=== PATIENT | female | born 1955 | race Caucasian/White ===

== ENCOUNTER 2017-07-13 10:51 | Emergency (ER) | payer MEDICARE ==
[2017-07-13] MEDS ORDERED: traMADol TAB* 50 MG PO ONE (11:53)
--- NOTE | 2017-07-13 11:55 | ED ---
Upper Extremity Pain - HPI Summary HPI Summary: Patient presents 1 day s/p FOOSH injury after she slipped and fell, with noted deformity over the dorsum of the right wrist. Denies numbness, tingling, temperature or color changes to the area. Pain is 8/10, radiates to the elbow without elbow involvment. Full ROM noted throughout the right elbow. Denies pain in all fingers. Thorough physical exam was performed, focusing on special wrist tests. Limited ROM. Pain with palpation over ulnar aspect of wrist at ulnar head. Pain with palpation over radial aspect over radial head. No pain, swelling or tenderness over anatomical snuffbox. No crepitus noted. No pain on palpation over medial or lateral elbow or forearm tenderness. Due to patient pain around injury, physical exam was limited. Pulses intact bilaterally. No temperature change, color change or pallor noted bilaterally. Sensory intact of radial, medial and ulnar nerve. Capillary refill < 2 sec. She has been taking Tylenol with codeine at home without pain relief. - History of Current Complaint Chief Complaint: EDExtremityUpper Stated Complaint: FALL/LT SIDED PAIN Time Seen by Provider: 07/13/17 11:25 Hx Obtained From: Patient Mechanism Of Injury: Unknown - FOOSH Onset/Duration: Started Hours Ago - last evening Timing: Constant Severity Initially: Moderate Severity Currently: Moderate Pain Location: Forearm, Hand Character: Sharp, Aching Aggravating Factor(s): Movement, Extension, Internal/External Rotation Alleviating Factor(s): Rest Associated Signs & Symptoms: Positive: Swelling, Other - deformity over the dorsum of the right wrist - Risk Factors Non-Orthopedic Risk Factor: Negative DVT Risk Factors: Negative Septic Arthritis Risk Factor: Negative Compartment Syndrome Risk Factors: Pain - Allergies/Home Medications Allergies/Adverse Reactions: Allergies Allergy/AdvReac Type Severity Reaction Status Date / Time Hydrocodone [From Vicodin] Allergy Intermediate Headache Verified 06/13/13 09:14 PMH/Surg Hx/FS Hx/Imm Hx Previously Healthy: Yes Cardiovascular History: Denies: Hx Hypertension - Was instructed by PCP to watch BP. GI History: Comment Only: Other GI Disorders - diverticulitis - Surgical History Surgery Procedure, Year, and Place: colectomy for diverticulitis - Immunization History Hx Pertussis Vaccination: No Immunizations Up to Date: Unable to Obtain/Confirm Infectious Disease History: Denies: Traveled Outside the [place] in Last 30 Days - Social History Occupation: Unemployed Lives: With Family Alcohol Use: None Hx Substance Use: No Substance Use Type: Reports: None Hx Tobacco Use: No Smoking Status (MU): Never Smoked Tobacco Review of Systems Constitutional: Negative Eyes: Negative Cardiovascular: Negative Respiratory: Negative Genitourinary: Negative Positive: no symptoms reported, see HPI Positive: Arthralgia - right wrist pain Positive: Other - right wrist pain with swelling and deformity noted Neurological: Negative Psychological: Normal All Other Systems Reviewed And Are Negative: Yes Physical Exam Triage Information Reviewed: Yes Vital Signs On Initial Exam: Initial Vitals Temp Pulse Resp BP Pulse Ox 97.7 F 87 20 159/71 96 07/13/17 10:54 07/13/17 10:54 07/13/17 10:54 07/13/17 10:54 07/13/17 10:54 Vital Signs Reviewed: Yes Appearance: Positive: Well-Appearing, Well-Nourished Skin: Positive: Warm, Skin Color Reflects Adequate Perfusion Head/Face: Positive: Normal Head/Face Inspection Eyes: Positive: EOMI, JOSHUA, Conjunctiva Clear Neck: Positive: Supple Respiratory/Lung Sounds: Positive: Clear to Auscultation Cardiovascular: Positive: RRR, Pulses are Symmetrical in both Upper and Lower Extremities Musculoskeletal: Positive: Pain @ - see hpi Neurological: Positive: Sensory/Motor Intact, Speech Normal Psychiatric: Positive: Normal Diagnostics - Vital Signs Vital Signs Temp Pulse Resp BP Pulse Ox 07/13/17 10:54 97.7 F 87 20 159/71 96 - Laboratory Lab Statement: Any lab studies that have been ordered have been reviewed, and results considered in the medical decision making process. Course/Dx - Course Course Of Treatment: Based on [place] Wrist Rules, patient sent to imaging. Xray shows: Fracture of the distal radius at the radial styloid process with buckle. fracture and intra-articular extension. Soft tissue swelling noted over the dorsal aspect of the wrist. Unstable fractures and those at high risk for complications are those with involvement of the articular surface of the distal radial ulnar joint or a step-off. I have called ortho and spoke with Balbina the ortho PA who stated there does not appear to be these involved and should place a sugar-tong with follow up in the office. No > 20 degree of dorsal angulation for concern. Sugar tong placed. Pulses +2 bilaterally and cap refill < 2 sec pre and post splint. Patient given orthopedic follow up in 5- 7 days. Encouraged Ibuprofen 600mg three times daily with meals for pain. Given Tramadol for relief of pain. 50mg TID x 3 days given. Return precautions given. Educated patient regarding wrist injuries, healing time and the possibility of further evaluation and imaging as orthopedist sees fit. - Diagnoses Differential Diagnosis/HQI/PQRI: Positive: Contusion, Fracture (Open), Fracture (Closed) Provider Diagnoses: Radial styloid fracture Discharge - Discharge Plan Condition: Stable Disposition: HOME Prescriptions: traMADol TAB* [Ultram*] 50 mg PO TID PRN #9 tab MDD 3 PRN Reason: Pain Patient Education Materials: Wrist Fracture in Adults (ED) Referrals: Rajiv Watson MD [Primary Care Provider] - Steve Kelly MD [Medical Doctor] - Additional Instructions: Follow up with ortho office Call tomorrow for appt If you develop worsening pain not well controlled with ibuprofen or tramadol, return to the ED You should not drive or operate machinery while taking Tramadol. Do not take any pain medications at home while on tramadol
--- NOTE | 2017-07-13 12:37 | RAD ---
Indication: Right forearm injury and fall. 2 views of the right forearm demonstrates a fracture of the distal radius at the radial styloid process. There is buckle fracture with intra-articular extension. IMPRESSION: Fracture of the distal radius at the radial styloid process with buckle fracture and intra-articular extension.
--- NOTE | 2017-07-13 12:47 | RAD ---
Indication: Outstretched hand, hand injury. 3 views of the right hand demonstrates fracture of the radial styloid process extending into the joint space. Degenerative changes of the trapezium first metacarpal joint is noted. No other fractures are noted. IMPRESSION: Fracture of the radial styloid process with extension into the joint space.
[2017-07-13 14:29] VITALS: BP 137/86
== END 2017-07-13 14:28 | disposition home or self-care (01) ==
LOC: ED 10:51
DX: S52.511A Displaced fracture of right radial styloid process, initial encounter for closed fracture (principal); W01.0XXA Fall on same level from slipping, tripping and stumbling without subsequent striking against object, initial encounter; Y92.9 Unspecified place or not applicable; Z88.5 Allergy status to narcotic agent
CPT/HCPCS: 29125; 99282; A9270-GY

== ENCOUNTER → 2017-07-26 17:39 | Emergency (ER) | payer MEDICARE ==
[2017-07-26 19:46] VITALS: BP 136/58
== END | disposition left against medical advice (07) ==
LOC: ED 17:39
DX: Z46.89 Encounter for fitting and adjustment of other specified devices (principal); Z53.21 Procedure and treatment not carried out due to patient leaving prior to being seen by health care provider

== ENCOUNTER 2017-09-07 12:18 | Emergency (ER) | payer MEDICARE ==
[2017-09-07] MEDS ORDERED: Diazepam TAB(*) 5 MG PO ONE (13:14)
[2017-09-07] MEDS ORDERED: Ketorolac INJ* 60 MG/2 ML VIAL IM ONE (13:14)
--- NOTE | 2017-09-07 14:06 | RAD ---
Indication: Left neck pain. 3 views of the cervical spine demonstrates vertebral bodies to be normal in height. Mild disc space narrowing at C5-C6 and C6-C7 is noted. Spinal canal appears to be intact. IMPRESSION: Degenerative disc disease at C5-C6 and C6-C7.
--- NOTE | 2017-09-07 14:08 | RAD ---
HISTORY: Left shoulder pain COMPARISONS: None VIEWS: 4, Frontal internal rotation, external rotation, outlet, and axillary views of the left shoulder FINDINGS: BONE DENSITY: Normal. BONES: There is no displaced fracture. JOINTS: There is osteoarthritis of the left AC joint. There is mild osteoarthritis of the glenohumeral joint. ALIGNMENT: There is no dislocation. SOFT TISSUES: There is soft tissue calcification of the greater tuberosity left humerus OTHER FINDINGS: None. IMPRESSION: 1. OSTEOARTHRITIS. 2. SOFT TISSUE CALCIFICATION CONSISTENT WITH A CALCIFIC TENDINOPATHY. 3. NO ACUTE OSSEOUS INJURY. IF SYMPTOMS PERSIST, RECOMMEND REPEAT IMAGING
--- NOTE | 2017-09-07 14:41 | ED ---
Neck Pain - HPI Summary HPI Summary: Pt here w/ Lt side neck pain/shoulder pain x 4 days. Gradual onset - worse as days goes on. Mostly Lt shoulder pain that radiates into Lt side of neck and upper arm area. Worse w/ movement of shoulder - elbow flexion also triggers pain in shoulder. "Popping" w/ movement. Denies numbness, tingling, weakness in arm, chest pain, SOB, nausea, vomiting, sweating, fatigue, jaw pain, dental pain. She admits to Rt wrist fx in July and has been using Lt arm more than usual to compensate. No h/o cervical or shoulder issues. 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 - Pain Intensity: 10 - Allergies/Home Medications Allergies/Adverse Reactions: Allergies Allergy/AdvReac Type Severity Reaction Status Date / Time Hydrocodone [From Vicodin] Allergy Intermediate Headache Verified 06/13/13 09:14 PMH/Surg Hx/FS Hx/Imm Hx Previously Healthy: Yes Endocrine/Hematology History: Denies: Hx Anticoagulant Therapy, Hx Blood Disorders Cardiovascular History: Denies: Hx Aneurysm, Hx Angina, Hx Atrial Fibrillation, Hx Cardiomegaly, Hx Congenital Heart Disease, Hx Congestive Heart Failure, Hx Coronary Artery Disease, Hx Hypercholesterolemia, Hx Hypertension - Was instructed by PCP to watch BP., Hx Myocardial Infarction, Hx Valvular Heart Disease Respiratory History: Reports: Other Respiratory Problems/Disorders - chronic cough tx's w/ tylenol w/ codeine Denies: Hx Asthma, Hx Chronic Obstructive Pulmonary Disease (COPD) GI History: Reports: Hx Diverticulosis Denies: Hx Gastroesophageal Reflux Disease Musculoskeletal History: Reports: Hx of Fracture(s) - Rt wrist 07/2017 Denies: Hx Arthritis, Hx Rheumatoid Arthritis, Hx Back Problems, Hx Bursitis , Hx Fibromyalgia, Hx Gout - Surgical History Surgery Procedure, Year, and Place: colectomy for diverticulitis Infectious Disease History: No Infectious Disease History: Denies: Traveled Outside the [place] in Last 30 Days - Social History Occupation: Unemployed Lives: With Family Alcohol Use: None Hx Substance Use: No Substance Use Type: Reports: None Hx Tobacco Use: No Smoking Status (MU): Never Smoked Tobacco Review of Systems Constitutional: Negative Positive: Fatigue - chronic, unchanged from baseline. Negative: Fever, Chills ENT: Negative Negative: Dental Pain Cardiovascular: Negative Negative: Palpitations, Chest Pain Respiratory: Negative Positive: Cough - chronic - unchanged from baseline0. Negative: Shortness Of Breath Gastrointestinal: Negative Negative: Abdominal Pain, Vomiting, Diarrhea, Nausea Positive: no symptoms reported Positive: Arthralgia, Myalgia - see HPI Skin: Negative Neurological: Negative Negative: Headache, Weakness, Paresthesia, Numbness, Syncope, Slurred Speech Psychological: Normal All Other Systems Reviewed And Are Negative: Yes Physical Exam Triage Information Reviewed: Yes Vital Signs On Initial Exam: Initial Vitals Temp Pulse Resp BP Pulse Ox 98.1 F 78 16 173/71 97 09/07/17 12:21 09/07/17 12:21 09/07/17 12:21 09/07/17 12:21 09/07/17 12:21 Vital Signs Reviewed: Yes Appearance: Positive: Well-Appearing, Pain Distress - mild to moderate, Obese Skin: Positive: Warm, Dry - no erythema, no ecchymosis over affected area Head/Face: Positive: Normal Head/Face Inspection Eyes: Positive: Normal, EOMI, Conjunctiva Clear ENT: Positive: Normal ENT inspection, Hearing grossly normal, Pharynx normal, TMs normal. Negative: Nasal congestion, Nasal drainage Dental: Positive: Other - edentulous. Negative: Abscess @ Neck: Positive: Supple, Nontender, No Lymphadenopathy Respiratory/Lung Sounds: Positive: Clear to Auscultation, Breath Sounds Present Cardiovascular: Positive: Normal, RRR, Pulses are Symmetrical in both Upper and Lower Extremities Bowel Sounds: Positive: Present Musculoskeletal: Positive: Strength/ROM Intact - phalanges, wrist, elbow FROM - Lt shoulder pain w/ abduction past 90 degrees - passive and active ROM are both painful; shoulder joint is TTP - musculature supporting Lt shoulder is TTP; Lt trapezius m TTP - cervical and thoracic spinous pp NTTP Neurological: Positive: Normal, Sensory/Motor Intact, Alert, Oriented to Person Place, Time, CN Intact II-III Psychiatric: Positive: Normal - Laurence Coma Scale Coma Scale Total: 15 Diagnostics - Vital Signs Vital Signs Temp Pulse Resp BP Pulse Ox 09/07/17 13:26 18 09/07/17 12:21 98.1 F 78 16 173/71 97 - Laboratory Diagnostic Studies Comment: Cervical XR: report reviewed - arthritis - no acute findings. Lt shoulder XR: report reviewed - tendinopathy/arthritis - correlated w/ exam Lab Statement: Any lab studies that have been ordered have been reviewed, and results considered in the medical decision making process. Neck Course/Dx - Diagnoses Provider Diagnoses: Left shoulder tendonitis, Cervical arthritis Discharge - Discharge Plan Condition: Stable Disposition: HOME Patient Education Materials: Calcific Tendinitis (ED), Osteoarthritis (ED) Referrals: Rajiv Watson MD [Primary Care Provider] - Additional Instructions: Heat, gentle stretches to prevent frozen shoulder May continue diclofenac with food for pain, inflammation Wear sling for comfort and support but make sure to remove and stretch as above You may continue topical analgesics as needed Follow-up with PCP - may benefit from physical therapy, steroid injection and/ or surgical consult
[2017-09-07] MEDS ORDERED: traMADol TAB* 50 MG PO ONE (14:58)
[2017-09-07 15:15] VITALS: BP 133/60
== END 2017-09-07 15:10 | disposition home or self-care (01) ==
LOC: ED 12:18
DX: M75.92 Shoulder lesion, unspecified, left shoulder (principal); M19.91 Primary osteoarthritis, unspecified site; M25.512 Pain in left shoulder; M54.2 Cervicalgia
CPT/HCPCS: 72040; 96372; 99282; A9270-GY; J1885

== ENCOUNTER 2018-02-15 18:36 | Observation (INO) | payer MEDICARE ==
--- NOTE | 2018-02-15 19:53 | RAD ---
Indication: Sharp LEFT breast/chest pain radiating to RIGHT chest, LEFT arm, and neck. Chronic cough. Comparison: November 04, 2014 Technique: Upright AP 1940 hours Report: Accounting for superimposed soft tissues with obese body habitus the lungs and pleural spaces are clear. Negative for pneumothorax. The heart, pulmonary vasculature, and mediastinal contours are unremarkable. IMPRESSION: No evidence for acute intrathoracic disease.
[2018-02-15] MEDS ORDERED: Ondansetron INJ* 2 MG/ML VIAL IV ONE (19:54)
[2018-02-15] MEDS ORDERED: Morphine INJ* 10 MG/ML 1 ML CARPUJECT IV ONE (19:54)
[2018-02-15 20:23] LABS: EGFR Non-African American 79.5 (>60)
[2018-02-15] MEDS ORDERED: Iodixanol* (CONTRAST) 320 MG/ML 100 ML SDV IV ONE (20:27)
--- NOTE | 2018-02-15 20:55 | RAD ---
INDICATION: Chest pain radiating into the back. Assess for aortic dissection. COMPARISON: Chest radiograph of the same date and October 22, 2008 CT. TECHNIQUE: Multidetector CT images were obtained from the lung apices to the ischial tuberosities with 97 mL Visipaque 320 IV contrast. No oral contrast administered. Multiplanar reformation including maximum intensity projection and 3-D arterial volume rendering. CHEST REPORT: Mild LEFT basilar subsegmental atelectasis. No suspicious focal pulmonary lesions. Negative for pleural effusions or pneumothorax. 2.6 x 2.4 cm LEFT thyroid lobe nodule with resulting rightward deviation of the trachea. Negative for thoracic lymphadenopathy. Mild cardiomegaly. Negative for pericardial effusion. Normal diameter thoracic aorta with minimal atherosclerotic plaque. Negative for dissection of the thoracic aorta. Unremarkable main pulmonary arteries. Negative for thoracic fractures or focal osseous lesions. Diffuse mild thoracic degenerative spondylosis. CHEST IMPRESSION: 1. Negative for aneurysm or dissection of the thoracic aorta. 2. 2.6 cm LEFT thyroid lobe nodule for which nonemergent dedicated follow-up thyroid ultrasound is suggested for further assessment. ABDOMEN PELVIS REPORT: Assessment of the abdominal viscera is limited due to arterial phase of enhancement. Diffuse decreased density of the 23 cm cephalocaudal liver consistent with fatty infiltration. No visualized focal liver lesions or biliary dilatation. No CT abdomen malleolus the gallbladder, pancreas, spleen. No significant CT abnormality of the upper GI, small bowel, or infra cecal appendix. Mild colonic diverticulosis without findings of diverticulitis. Negative for ascites, free air, or significant hernias. Normal adrenal glands. Unremarkable kidneys with symmetric cortical phase enhancement. No conspicuous focal renal lesions, stones, or hydronephrosis. Unremarkable nondilated ureters. Largely decompressed urinary bladder limiting assessment without gross abnormality. Post hysterectomy. Unremarkable adnexal regions. Negative for lymphadenopathy. Normal diameter abdominal aorta and iliac arteries with only minimal atherosclerotic plaque. Negative for dissection of the abdominal aorta. Negative for significant visceral artery stenosis. Largely decompressed IVC consistent with low volume state. Negative for retroperitoneal hematoma. Negative for lumbar sacral spine or pelvic fracture or suspicious focal osseous lesions. Mild degenerative spondylosis and facet joint osteoarthritis. ABDOMEN PELVIS IMPRESSION: 1. Negative for aneurysm or dissection of the abdominal aorta. 2. Hepatomegaly and hepatosteatosis. 3. Mild colonic diverticulosis without findings of diverticulitis. 4. Negative for obstructive uropathy.
--- NOTE | 2018-02-15 21:33 | HP ---
H&P (Free Text) History and Physical: PCP: Theresa Watson MD Date/Time: 02/15/20182119 CC: chest pain HPI: Mrs Muller is a 62YO female HX HTN who experienced the rapid onset of L inframammary sharp chest pain and inferior R chest sharp chest pain. The pain radiated up into the R neck and down the R arm. There was some SOB, but no N/V, sweats, palpitations, or light-headedness. She reports night sweats the past 2 nights, denies F/C, cough, congestion, LE swelling, or change in bowel/bladder. She denies exacerbating or alleviating factors. PMedHx HTN chronic cephalgia OA L-spine IBS diverticulitis GERD Ambulatory Orders Acetaminop/Codeine 30 MG TAB* [Tylenol/Codeine 30 MG TAB*] 1 tab PO TID PRN 08/25 Gabapentin CAP(*) [Neurontin 300 CAP(*)] 300 mg PO TID 02/15/18 Naproxen Sodium [Aleve] 220 mg PO DAILY PRN 02/15/18 Pantoprazole TAB (NF) [Protonix TAB (NF)] 40 mg PO BID 02/15/18 Triamterene/HCTZ 37.5-25 MG* [Dyazide CAP*] 1 cap PO DAILY 02/15/18 amLODIPine TAB* [Norvasc 5 mg TAB*] 10 mg PO DAILY 02/15/18 Allergies hydrocodone Allergy (Verified 02/15/18 19:02) Headache PSurgHx R tarsal tunnel release hysterectomy SocHx: no tobacco, alcohol, or recreational drug HX; lives with her ; works as a housekeeper head part-time; full code status FamHx: Mother passed at 72 w/ chronic pain. Father passed at 86 from CVA, HX CAD /RI in his 50s. ROS: as above, otherwise reviewed and all were negative vitals: Vital Signs Temp 36.8 C 02/15/18 18:36 Pulse 91 02/15/18 21:00 Resp 19 02/15/18 21:00 BP 130/58 02/15/18 21:00 Pulse Ox 93 02/15/18 21:00 Intake & Output 02/14/18 02/15/18 02/15/18 23:59 11:59 23:59 Weight 90.718 kg Constitutional: NAD, normally developed, obese white female HEENM: atraumatic; sclera/conjunctiva: anicteric/clear; hearing: clinically intact; oropharynx: clear, moist Neck: soft tissue: non-tender; thyroid: normal Pulmonary: clear to auscultation bilaterally, good aeration, no accessory muscle use CV: RR/RR, normal S1S2, no carotid bruit, no jugular venous distention, 2+ B DP/ PT, no edema Abdominal: soft, non-distended, non-tender, no rebound/guarding/rigidity, normoactive bowel sounds, no hepatosplenomegaly or masses, no costovertebral angle tenderness Musculoskeletal: general: grossly intact, no tenderness w/ palpation Integumental: normal appearance and texture of exposed skin Psychiatric orientation: AA&O to PPS affect: calm mood: cooperative eye contact: fair content: reliable responses: timely insight: good Testing: Lab Results 02/15/18 Range/Units 19:20 Sodium 135 L (139-145) mmol/L Potassium 4.4 (3.5-5.0) mmol/L Chloride 100 L (101-111) mmol/L Carbon Dioxide 23 (22-32) mmol/L Anion Gap 12 H (2-11) mmol/L BUN 16 (6-24) mg/dL Creatinine 0.74 (0.51-0.95) mg/dL Est GFR ( Amer) 102.3 (>60) Est GFR (Non-Af Amer) 79.5 (>60) BUN/Creatinine Ratio 21.6 H (8-20) Glucose 121 H (70-100) mg/dL Calcium 10.0 (8.6-10.3) mg/dL Total Bilirubin 0.40 (0.2-1.0) mg/dL AST 39 (13-39) U/L ALT 32 (7-52) U/L Alkaline Phosphatase 92 (34-104) U/L Troponin I 0.00 (<0.04) ng/mL Total Protein 8.6 (6.4-8.9) g/dL Albumin 4.8 (3.2-5.2) g/dL Globulin 3.8 (2-4) g/dL Albumin/Globulin Ratio 1.3 (1-3) ECG, personally reviewed: NSR rate 99, slight ST depression V4-5 CXR, personally reviewed: IMPRESSION: No evidence for acute intrathoracic disease. CTA chest/abd/pel, personally reviewed: CHEST IMPRESSION: 1. Negative for aneurysm or dissection of the thoracic aorta. 2. 2.6 cm LEFT thyroid lobe nodule for which nonemergent dedicated follow- up thyroid ultrasound is suggested for further assessment. ABDOMEN PELVIS IMPRESSION: 1. Negative for aneurysm or dissection of the abdominal aorta. 2. Hepatomegaly and hepatosteatosis. 3. Mild colonic diverticulosis without findings of diverticulitis. 4. Negative for obstructive uropathy. Impression: 62F presenting with atypical chest pain for r/o ACS DIAGNOSIS & PLAN Primary atypical chest pain r/o ACS : telemetry : trend troponin : aspirin : metoprolol 12.5mg PO in ED : supplemental oxygen : chemical NST in AM : consider cardiology consult pending above results : supportive care Secondary HTN : continue triamterene/HCTZ & amlodipine chronic cephalgia OA L-spine : hold naproxen : continue acetaminophen & gabapentin : PRN tramadol GERD : continue pantoprazole Admission Rational: observation for r/o ACS DVTp: SCDs Code Status: full HCP:
[2018-02-15] MEDS ORDERED: Nitroglycerin TAB 0.4 MG* 0.4 MG TAB SL ONE (21:54)
[2018-02-15] MEDS ORDERED: Ondansetron INJ* 2 MG/ML VIAL IV PRN (22:12)
[2018-02-15] MEDS ORDERED: CMCS: Melatonin (NF) 3 MG TAB PO PRN (22:12)
[2018-02-15] MEDS ORDERED: Aspirin 81 mg CHEW TAB* 81 MG TAB.CHEW PO ONE (22:12)
[2018-02-15] MEDS ORDERED: Metoprolol Tartrate TAB* 25 MG PO ONE (22:14)
[2018-02-15 22:25] LABS: ABS Basophils 0.1 10^3/ul (0-0.2); ABS Eosinophils 0.2 10^3/ul (0-0.6); ABS Lymphocytes 3.2 10^3/ul (1.0-4.8); ABS Monocytes 0.7 10^3/ul (0-0.8); ABS Neutrophils 9.7 10^3/ul (1.5-7.7); ABS Nucleated RBC 0 10^3/ul; Eosinophil % 1.2 % (0-6); Hematocrit 41 % (35-47); Hemoglobin 13.8 g/dl (12.0-16.0); Lymphocyte % 22.9 % (25-47); Mean Corpuscular HGB Conc 34 g/dl (31-36); Mean Corpuscular Hemoglobin 28 pg (27-31); Mean Corpuscular Volume 84 fL (80-97); Mean Platelet Volume 7.4 um3 (7.4-10.4); Nucleated Red Blood Cells % 0.1; Platelet Count 265 10^3/ul (150-450); Red Cell Distribution Width 15 % (10.5-15); White Blood Count 13.8 10^3/ul (3.5-10.8)
[2018-02-15] MEDS: NS 0.9% 1000 ML* 1,000 ML IV SCH (23:49)
[2018-02-15] MEDS: traMADol TAB* 50 MG PO PRN (23:55)
--- NOTE | 2018-02-16 09:09 | PN ---
Subjective Date of Service: 02/16/18 Interval History: Patient was seen and examined earlier today. Reports feeling tired, but denies chest pain or tightness. She experience chest discomfort with deep inspiration of coughing. Denies SOB, fever or chills. Had her nuclear stress test done earlier. Cardiology consult requested. She has no c/o today. Family History: Unchanged from Admission Social History: Unchanged from Admission Past Medical History: Unchanged from Admission Objective Active Medications: Acetaminophen (Tylenol Tab*) 650 mg PO Q6H PRN PRN Reason: FEVER/PAIN Amlodipine Besylate (Norvasc Tab*) 10 mg PO DAILY [facility] Docusate Sodium (Colace Cap*) 200 mg PO BID [facility] Gabapentin (Neurontin Cap(*)) 300 mg PO TID [facility] Sodium Chloride (Ns 0.9% 1000 Ml*) 1,000 mls @ 50 mls/hr IV PER RATE [facility] Last Admin: 02/15/18 23:49 Dose: 50 mls/hr Melatonin (Melatonin (Nf)) 3 mg PO BEDTIME PRN; Protocol PRN Reason: Sleep Last Admin: 02/16/18 00:15 Dose: 3 mg Omeprazole (Prilosec Cap*) 20 mg PO BID [facility] Ondansetron HCl (Zofran Inj*) 4 mg IV Q6H PRN PRN Reason: NAUSEA Tramadol HCl (Ultram*) 50 mg PO Q6H PRN PRN Reason: PAIN Last Admin: 02/15/18 23:55 Dose: 50 mg Triamterene/HCTZ (Dyazide Cap*) 1 cap PO DAILY [facility] Vital Signs - 8 hr 02/16/18 02/16/18 02/16/18 02:37 03:54 07:26 Temperature 97.7 F 97.3 F Pulse Rate 69 73 Respiratory 18 18 15 Rate Blood Pressure 128/67 117/56 (mmHg) O2 Sat by Pulse 95 95 Oximetry Oxygen Devices in Use Now: None Appearance: Awake, alert and oriented. Appears comfortable laying on her bed, in NAD. Eyes: No Scleral Icterus, PERRLA Ears/Nose/Mouth/Throat: Mucous Membranes Moist Neck: NL Appearance and Movements; NL JVP, Trachea Midline Respiratory: Symmetrical Chest Expansion and Respiratory Effort, Clear to Auscultation Cardiovascular: NL Sounds; No Murmurs; No JVD, RRR Abdominal: NL Sounds; No Tenderness; No Distention, - - Minimal epigastric tenderness on exam, no rebound. Extremities: No Edema Skin: No Rash or Ulcers Neurological: Alert and Oriented x 3, NL Muscle Strength and Tone Lines/Tubes/Other Access: Clean, Dry and Intact Peripheral IV Result Diagrams: 02/15/18 22:07 02/15/18 19:20 Diagnostic Imaging: Patient Name: RE WALLER Medical Record#: [id number] Ordering Physician: Crist[facility]#: [id number] : 1955 Age: 62 Sex: F Location: [address] [place] [address] MEDICAL/TELEMETRY Exam Date: 02/16/18 0800 ADM Status: ADM Artur Order Information: NUCLEAR CARDIAC STRESS TEST Accession Number: [id number] CPT: 82701 INDICATION: Chest pain COMPARISON: None IMPRESSION: SCINTIGRAPHIC FINDINGS SUGGESTIVE OF LATERAL WALL ISCHEMIA NEAR THE BASE THE HEART. THIS WAS BE CORRELATED WITH THE CLINICAL/LABORATORY FINDINGS. NORMAL WALL MOTION AND EJECTION FRACTION. ASSESSMENT: INTERMEDIATE-RISK Based on imaging criteria from ACC/AHA 2002 Guideline Update for the Management of Patients With Chronic Stable Angina Table 23. Noninvasive Risk Stratification. Reference. HIGH-RISK (GREATER THAN 3% ANNUAL MORTALITY RATE) - Severe resting left ventricular dysfunction (LVEF < 35%) - Severe exercise left ventricular dysfunction (exercise LVEF < 35%) - Stress-induced large perfusion defect (particularly if anterior) - Stress-induced multiple perfusion defects of moderate size - Large, fixed perfusion defect with LV dilation or increased lung uptake ( thallium-201) - Stress-induced moderate perfusion defect with LV dilation or increased lung uptake (thallium-201) INTERMEDIATE-RISK (1%-3% ANNUAL MORTALITY RATE) - Mild/moderate resting left ventricular dysfunction (LVEF = 35% to 49%) - Stress-induced moderate perfusion defect without LV dilation or increased lung intake (thallium-201) LOW-RISK (LESS THAN 1% ANNUAL MORTALITY RATE) - Normal or small myocardial perfusion defect at rest or with stress Assess/Plan/Problems-Billing Assessment: - Patient Problems (1) Atypical chest pain Current Visit: Yes Comment: - Started Metoprolol - Continue ASA - Nuclear stress test read as an intermediate risk, Cardiology consult appreciated. - Continue beta blockers - Troponin trend WNL - Suspect some element of pluresy giving her pain pattern. Could be muscloskeletal in origin. (2) CAD (coronary artery disease) Current Visit: Yes Comment: - Check fasting lipid panel in AM - Discussed possible coronary angioagraphy in the future (3) Hypertension Current Visit: Yes Comment: - Continue Metoprolol and Norvasc (4) GERD (gastroesophageal reflux disease) Current Visit: Yes Comment: Continue PPI coverage, on Prilosec (5) Obesity Current Visit: Yes Comment: Supportive care (6) Chronic back pain Current Visit: Yes Status: Acute Code(s): M54.9 - DORSALGIA, UNSPECIFIED; G89.29 - OTHER CHRONIC PAIN SNOMED Code(s): 737444576 Comment: Continue Gabapentin and Tramadol prn (7) DVT prophylaxis Current Visit: Yes Status: Acute Code(s): JEF2058 - SNOMED Code(s): 829561475 Comment: Ambulate, SCD (8) Full code status Current Visit: Yes Status: Acute Code(s): Z78.9 - OTHER SPECIFIED HEALTH STATUS SNOMED Code(s): 965779019 Comment: She is full code Status and Disposition: Inpatient. Labs in AM, including lipid panel. Likely discharge to home in AM.
[2018-02-16] MEDS: Gabapentin CAP(*) 300 MG PO SCH ×4 (09:23→20:50)
[2018-02-16] MEDS: Docusate CAP* 100 MG PO SCH ×2 (09:23→20:51)
[2018-02-16] MEDS: amLODIPine TAB* 5 MG PO SCH (09:23)
[2018-02-16] MEDS: Omeprazole CAP* 20 MG PO SCH ×2 (09:23→20:50)
[2018-02-16] MEDS: Triamterene/HCTZ 37.5-25 MG* CAP PO SCH (09:23)
[2018-02-16] MEDS: traMADol TAB* 50 MG PO PRN ×2 (11:12→19:12)
[2018-02-16] MEDS ORDERED: Regadenoson* 0.4 MG/5 ML SYRINGE ONE (12:31)
--- NOTE | 2018-02-16 14:00 | RAD ---
INDICATION: Chest pain COMPARISON: None TECHNIQUE: A single day SPECT protocol was utilized. Rest images were acquired following the intravenous injection of 10.1 millicuries of technetium 99m tetrofosmin. Pharmacologic stress images were acquired following the intravenous administration of 25.1 millicuries of technetium 99m tetrofosmin. This examination is limited by lack of CT attenuation correction. This was not performed because the patient was claustrophobic. FINDINGS: Both the tomographic images and in the portal images suggest lateral wall ischemia near the base the heart. There are no other apparent defects of the stress-induced or fixed nature. The cardiac chamber size is normal. There are no wall motion abnormalities. The ejection fraction is calculated at 77 percent during stress. IMPRESSION: SCINTIGRAPHIC FINDINGS SUGGESTIVE OF LATERAL WALL ISCHEMIA NEAR THE BASE THE HEART. THIS WAS BE CORRELATED WITH THE CLINICAL/LABORATORY FINDINGS. NORMAL WALL MOTION AND EJECTION FRACTION. ASSESSMENT: INTERMEDIATE-RISK Based on imaging criteria from ACC/AHA 2002 Guideline Update for the Management of Patients With Chronic Stable Angina Table 23. Noninvasive Risk Stratification. Reference. HIGH-RISK (GREATER THAN 3% ANNUAL MORTALITY RATE) - Severe resting left ventricular dysfunction (LVEF < 35%) - Severe exercise left ventricular dysfunction (exercise LVEF < 35%) - Stress-induced large perfusion defect (particularly if anterior) - Stress-induced multiple perfusion defects of moderate size - Large, fixed perfusion defect with LV dilation or increased lung uptake (thallium-201) - Stress-induced moderate perfusion defect with LV dilation or increased lung uptake (thallium-201) INTERMEDIATE-RISK (1%-3% ANNUAL MORTALITY RATE) - Mild/moderate resting left ventricular dysfunction (LVEF = 35% to 49%) - Stress-induced moderate perfusion defect without LV dilation or increased lung intake (thallium-201) LOW-RISK (LESS THAN 1% ANNUAL MORTALITY RATE) - Normal or small myocardial perfusion defect at rest or with stress
[2018-02-16] MEDS ORDERED: Metoprolol Tartrate TAB* 25 MG PO SCH (15:00)
[2018-02-16] MEDS: Acetaminophen TAB* 325 MG PO PRN (15:42)
[2018-02-16] MEDS ORDERED: Metoprolol Succinate XL TAB* 25 MG PO ONE (16:48)
--- NOTE | 2018-02-17 00:09 | CONS ---
CC: Dr. Rajiv Watson * CARDIOLOGY CONSULTATION: DATE OF CONSULT: 02/16/18 REASON FOR CONSULT: Asked to see the patient for a history of presentation with chest discomfort and abnormal Lexiscan stress test. HISTORY OF PRESENT ILLNESS: The patient is a 62-year-old female who states that back about several years ago, she had an ultrasound done at [facility] and was told she had no active problems right then, but they saw an abnormality that would need to be watched over time. She did not have any followup since that time with any repeat echo. She states starting over the past couple of years, she would notice the onset of sharp stabbing type of discomfort under both lower ribcages with sometimes radiation around towards the back area, sometimes up into the back of her head and into her face at times. They would sometimes go down to the arms as well. This was very unpredictable and even now it is still unpredictable. 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 The patient was in usual state of health and just yesterday had the discomfort even while sitting. She had it as described involving under both left and right areas of the chest radiating into the back and down the right arm. She had no nausea, vomiting or diaphoresis with it. She had no significant palpitations or lightheadedness. Because of the worsening of the symptoms, she presented to the emergency room. In the emergency room, she was evaluated and her EKG had showed mild ST segment abnormalities particularly in lead I and aVL, and minimally in V5 and V6. There were similar type changes in V4, V5, and V6 and subtly in lead II on an older EKG. During the emergency room evaluation, she underwent a CTA of her chest, abdomen, and pelvis concerned about possibly having aortic dissection. The aorta did not show any dissection present in the chest or in the abdomen. She had hepatosplenomegaly and apparently with hepatosteatosis. Her cardiac enzymes over the course of the first day showed negative troponin of 0.00, 0.01, and 0.01. Her lactic acid on admission was 1.6 and her BUN and creatinine were normal. Her hemoglobin and hematocrit were normal, but her white count was 13,800 with 22% lymphs, 70% neutrophils and 5% monos. She subsequently underwent a Lexiscan stress test the report of which by radiology stated that there was suggestive of lateral wall ischemia near the base of the heart with an ejection fraction of 77% during exercise and no focal wall motion abnormality to that area, as such we were asked to see her. When I spoke with her more, she tells me that the symptom of the sharpness is very variable. She states that it could be made worse if she coughs and sometimes if she twists or turn. I asked her to cough in my presence very intensely and with that she developed the onset of the discomfort. She stated that the way to make it better was to take short breaths in and not take deep breaths. While she was having this symptom after coughing, I did press on the lower sternal area and provoked symptoms as well. 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 Her cardiac risk factors include a history of hypertension. She denies any history of diabetes. She denies any history of hyperlipidemia. Her father reportedly had CAD in his 50s. Mother at 72 with chronic pain. She also does not smoke. PAST MEDICAL HISTORY: Includes the hypertension, chronic cephalgia. She has irritable bowel syndrome, diverticulitis, gastroesophageal reflux and osteoarthritic lumbar spine issues. PAST SURGICAL HISTORY: Includes right carpal tunnel release, hysterectomy. MEDICATIONS: Her current medications at home included: 1. Acetaminophen and codeine 30 mg tablets one tablet t.i.d. p.r.n. 2. Gabapentin 300 mg t.i.d. 3. Naproxen 220 mg daily p.r.n. 4. Pantoprazole 40 mg twice a day. 5. Triamterene and hydrochlorothiazide 37.5/25 one a day. 6. Amlodipine 10 mg a day. ALLERGIES: HYDROCODONE, which produces headache. SOCIAL HISTORY: No tobacco, alcohol or recreational drug usage, and she lives with her . REVIEW OF SYSTEMS: As per the H and P with no additional findings. PHYSICAL EXAM: When I see her reveals an obese female, in no acute distress. Neck is supple. I do not appreciate obvious increased JVP. Carotid has fair upstroke and volume. There were no bruits or transmitted murmur. Conjunctivae are pink. Sclerae are clear. Mouth reveals moist mucosa. Lungs reveal no accessory muscle usage. There is poor to fair excursion. There are no active rales, rhonchi or wheezes. Heart reveals no visible heaves, no palpable heaves or thrills. Normal S1. I do not appreciate a significant S4, gallop. There is no significant systolic or diastolic murmur appreciated. Abdomen is soft, nontender, obese in nature without organomegaly. Of note, pressing on the lower rib area does provoke symptomatology. Extremities are heavy in nature bilaterally, but no jenni pitting edema. Neuro: The patient is alert, oriented with normal mentation. Musculoskeletal: The patient with normal gait albeit slowly and she moves all extremities appropriately. Psychological: The patient with normal affect, but seems quiet in speaking with her. DIAGNOSTIC STUDIES/LAB DATA: Laboratory Results: White blood count 13,800, hemoglobin and hematocrit 13.8 and 41 with the platelet count of 265,000. SGOT 39, SGPT 32, lactic acid as mentioned 1.6, albumin is 4.8, total protein 8.6. Sodium 135, potassium 4.4, chloride 100, bicarb 23. EKG from admission dated 02/15/18, timed 1837, revealed sinus rhythm, heart rate 99, [place] intervals 0.18, QRS 0.09, QT 0.35, axis is -20 degrees. There is minimal ST segment depression in I, aVL, in V4 through V6. Repeat EKG done today, 02/16/18, 1329, reveals the mild ST segment depression still present in I and aVL and subtly in V3, nonspecifically in V4 through V6. Nonspecific T wave abnormalities are noted as well. IMPRESSION AND PLAN: At this point in time, the symptoms do not seem to sound cardiac in nature, but I would start her on metoprolol 25 mg a day in addition to her Norvasc and get her up and about in see how she fares. Her cardiac enzymes, despite having the significant symptomatology, have been completely flat, and her EKG has not had significant change to it. I will get a fasting lipid sample in the morning to see whether or not she has hyperlipidemia and consider a statin drug if she does. If getting her up and about on medications tomorrow morning if she is able consideration could be following her up as an outpatient. If she develops recurrent symptomatology up and about exerting herself, we might have to rethink whether a definitive assessment with cardiac catheterization would be indicated, although right now I am not leading in that direction given the small abnormality on the nuclear imaging and her well preserved LV function and her very atypical sounding symptoms. Thank you very much for asking me to see her and we will follow her along with you. [id number]/CPS #: [id number] MTDD
[2018-02-17] MEDS: NS 0.9% 1000 ML* 1,000 ML IV SCH (03:30)
[2018-02-17] MEDS: Acetaminophen TAB* 325 MG PO PRN ×2 (03:45→10:47)
[2018-02-17 05:14] LABS: ABS Basophils 0.1 10^3/ul (0-0.2); ABS Eosinophils 0.1 10^3/ul (0-0.6); ABS Monocytes 0.7 10^3/ul (0-0.8); ABS Neutrophils 6.3 10^3/ul (1.5-7.7); ABS Nucleated RBC 0 10^3/ul; Eosinophil % 1.4 % (0-6); Hematocrit 40 % (35-47); Hemoglobin 13.6 g/dl (12.0-16.0); Lymphocyte % 29.8 % (25-47); Mean Corpuscular HGB Conc 34 g/dl (31-36); Mean Corpuscular Hemoglobin 29 pg (27-31); Mean Corpuscular Volume 84 fL (80-97); Mean Platelet Volume 7.2 um3 (7.4-10.4); Nucleated Red Blood Cells % 0.1; Platelet Count 253 10^3/ul (150-450); Red Blood Count 4.72 10^6/ul (4.0-5.4); Red Cell Distribution Width 15 % (10.5-15); White Blood Count 10.2 10^3/ul (3.5-10.8)
[2018-02-17 05:29] LABS: EGFR Non-African American 86.2 (>60)
[2018-02-17] MEDS ORDERED: Metoprolol Succinate XL TAB* 25 MG PO SCH (09:00)
[2018-02-17] MEDS ORDERED: Aspirin EC TAB* 81 MG TAB.EC PO SCH (09:00)
--- NOTE | 2018-02-17 09:16 | PN ---
Subjective Date of Service: 02/17/18 Interval History: Mrs. Muller is doing better today. She hasn't been ambulating much, planning to do it this morning. She has not had any recurrent chest pain since admission. She feels hungry, was NPO for a fasting lipid panel. Denies palpitations or SOB. She has no c/o today. Family History: Unchanged from Admission Social History: Unchanged from Admission Past Medical History: Unchanged from Admission Objective Active Medications: Acetaminophen (Tylenol Tab*) 650 mg PO Q6H PRN PRN Reason: FEVER/PAIN Last Admin: 02/17/18 03:45 Dose: 650 mg Amlodipine Besylate (Norvasc Tab*) 10 mg PO DAILY [facility] Last Admin: 02/16/18 09:23 Dose: 10 mg Docusate Sodium (Colace Cap*) 200 mg PO BID [facility] Last Admin: 02/16/18 20:51 Dose: 200 mg Gabapentin (Neurontin Cap(*)) 300 mg PO TID [facility] Last Admin: 02/16/18 20:50 Dose: 300 mg Sodium Chloride (Ns 0.9% 1000 Ml*) 1,000 mls @ 50 mls/hr IV PER RATE [facility] Last Admin: 02/17/18 03:30 Dose: 50 mls/hr Melatonin (Melatonin (Nf)) 3 mg PO BEDTIME PRN; Protocol PRN Reason: Sleep Last Admin: 02/16/18 00:15 Dose: 3 mg Metoprolol Succinate (Toprol Xl Tab*) 25 mg PO DAILY [facility] Omeprazole (Prilosec Cap*) 20 mg PO BID [facility] Last Admin: 02/16/18 20:50 Dose: 20 mg Ondansetron HCl (Zofran Inj*) 4 mg IV Q6H PRN PRN Reason: NAUSEA Last Admin: 02/16/18 12:17 Dose: 4 mg Tramadol HCl (Ultram*) 50 mg PO Q6H PRN PRN Reason: PAIN Last Admin: 02/16/18 19:12 Dose: 50 mg Triamterene/HCTZ (Dyazide Cap*) 1 cap PO DAILY [facility] Last Admin: 02/16/18 09:23 Dose: 1 cap Vital Signs - 8 hr 02/17/18 02/17/18 02/17/18 03:30 07:13 08:10 Temperature 98.1 F 98.2 F Pulse Rate 89 83 Respiratory 18 Rate Blood Pressure 131/69 123/62 (mmHg) O2 Sat by Pulse 93 92 92 Oximetry Oxygen Devices in Use Now: None Appearance: Appears comfortable and in NAD. Eyes: No Scleral Icterus, PERRLA Ears/Nose/Mouth/Throat: Mucous Membranes Moist Neck: NL Appearance and Movements; NL JVP, Trachea Midline Respiratory: Symmetrical Chest Expansion and Respiratory Effort, Clear to Auscultation Cardiovascular: NL Sounds; No Murmurs; No JVD, RRR Abdominal: NL Sounds; No Tenderness; No Distention Skin: No Rash or Ulcers Neurological: Alert and Oriented x 3, NL Gait, NL Muscle Strength and Tone Lines/Tubes/Other Access: Clean, Dry and Intact Peripheral IV Nutrition: Taking PO's Result Diagrams: 02/17/18 04:52 02/17/18 04:52 Assess/Plan/Problems-Billing Assessment: A 62 y/o female with atypical chest pain, negative Troponin and EKG, with mutiple risk factors for CAD, including HTN, hyperlipidemia and morbid obesity. - Patient Problems (1) Atypical chest pain Current Visit: Yes Comment: - Started Metoprolol - Continue ASA - Nuclear stress test read as an intermediate risk, Cardiology consult appreciated, no concern for acute coronary syndrome. - Continue beta blockers - Troponin trend WNL - Suspect some element of pluresy giving her pain pattern. Could be muscloskeletal in origin. (2) CAD (coronary artery disease) Current Visit: Yes Comment: - Lipid panel checked, borderline high - Start statin as outpatient (3) Hypertension Current Visit: Yes Comment: - Continue Metoprolol and Norvasc (4) GERD (gastroesophageal reflux disease) Current Visit: Yes Comment: Continue PPI coverage, on Prilosec (5) Obesity Current Visit: Yes Comment: Supportive care (6) Chronic back pain Current Visit: Yes Status: Acute Code(s): M54.9 - DORSALGIA, UNSPECIFIED; G89.29 - OTHER CHRONIC PAIN SNOMED Code(s): 766393825 Comment: Continue Gabapentin and Tramadol prn (7) DVT prophylaxis Current Visit: Yes Status: Acute Code(s): XYM7020 - SNOMED Code(s): 227725320 Comment: Ambulate, SCD (8) Full code status Current Visit: Yes Status: Acute Code(s): Z78.9 - OTHER SPECIFIED HEALTH STATUS SNOMED Code(s): 426782948 Comment: She is full code (9) Borderline hyperlipidemia Current Visit: Yes Comment: Intiate Statin theraypy and F/U with [facility] as outpatient Status and Disposition: Inpatient. Stable for discharge to home today.
[2018-02-17] MEDS: traMADol TAB* 50 MG PO PRN (09:18)
[2018-02-17] MEDS: amLODIPine TAB* 5 MG PO SCH (09:49)
[2018-02-17] MEDS: Docusate CAP* 100 MG PO SCH (09:49)
[2018-02-17] MEDS: Gabapentin CAP(*) 300 MG PO SCH ×2 (09:50→13:48)
[2018-02-17] MEDS: Triamterene/HCTZ 37.5-25 MG* CAP PO SCH (09:50)
[2018-02-17] MEDS: Omeprazole CAP* 20 MG PO SCH (09:52)
[2018-02-17] MEDS ORDERED: Atorvastatin* 40 MG TAB PO SCH (10:00)
--- NOTE | 2018-02-17 10:56 | ED ---
Jimbo Lombardi Nilda, scribed for Mono Nielsen MD on 02/15/18 at 1906 . HPI Chest Pain - HPI Summary HPI Summary: This patient is a 62 year old F presenting to [facility] with a chief complaint of intermittent CP over left breast and underneath right rib that radiates to back and jaw since 1630. The patient rates the pain 10/10 in severity. Symptoms aggravated and alleviated by nothing. Patient reports chronic cough and SOB, but denies dizziness and lightheadedness. Pt states she has not taken aspirin today. PMHx HTN. No PSHx stents. - History of Current Complaint Chief Complaint: EDChestPainROMI Time Seen by Provider: 02/15/18 18:53 Hx Obtained From: Patient Onset/Duration: Started Hours Ago, Still Present Timing: Intermittent Current Severity: Severe Pain Intensity: 10 Pain Scale Used: 0-10 Numeric Chest Pain Location: Discrete at: - CP over left breast and underneath right rib Chest Pain Radiates: Yes Chest Pain Radiates To:: Back, Jaw Aggravating Factor(s): Nothing Alleviating Factor(s): Nothing Associated Signs and Symptoms: Positive: Other: - reports chronic cough and SOB , but denies dizziness and lightheadedness - Allergy/Home Medications Allergies/Adverse Reactions: Allergies Allergy/AdvReac Type Severity Reaction Status Date / Time hydrocodone Allergy Headache Verified 02/15/18 19:02 Home Medications: Home Medications Acetaminop/Codeine 30 MG TAB* [Tylenol/Codeine 30 MG TAB*] 1 tab PO TID PRN 08/25 [History Confirmed 02/15/18] Gabapentin CAP(*) [Neurontin 300 CAP(*)] 300 mg PO TID 02/15/18 [History Confirmed 02/15/18] Naproxen Sodium [Aleve] 220 mg PO DAILY PRN 02/15/18 [History Confirmed 02/15/18 ] Pantoprazole TAB (NF) [Protonix TAB (NF)] 40 mg PO BID 02/15/18 [History Confirmed 02/15/18] Triamterene/HCTZ 37.5-25 MG* [Dyazide CAP*] 1 cap PO DAILY 02/15/18 [History Confirmed 02/15/18] amLODIPine TAB* [Norvasc 5 mg TAB*] 10 mg PO DAILY 02/15/18 [History Confirmed 02/15/18] PMH/Surg Hx/FS Hx/Imm Hx Endocrine/Hematology History: Denies: Hx Anticoagulant Therapy, Hx Blood Disorders, Hx Diabetes Cardiovascular History: Reports: Hx Hypertension - Was instructed by PCP to watch BP. Denies: Hx Aneurysm, Hx Angina, Hx Atrial Fibrillation, Hx Cardiomegaly, Hx Congenital Heart Disease, Hx Congestive Heart Failure, Hx Coronary Artery Disease, Hx Hypercholesterolemia, Hx Myocardial Infarction, Hx Valvular Heart Disease Respiratory History: Reports: Other Respiratory Problems/Disorders - chronic cough tx's w/ tylenol w/ codeine Denies: Hx Asthma, Hx Chronic Obstructive Pulmonary Disease (COPD) GI History: Reports: Hx Diverticulosis Denies: Hx Gastroesophageal Reflux Disease Musculoskeletal History: Denies: Hx Arthritis, Hx Rheumatoid Arthritis, Hx Back Problems, Hx Bursitis , Hx Fibromyalgia, Hx Gout - Surgical History Surgery Procedure, Year, and Place: colectomy for diverticulitis Infectious Disease History: No Infectious Disease History: Denies: Traveled Outside the US in Last 30 Days - Family History Known Family History: Positive: Cardiac Disease - [place] father 57 y/o, Other - no known aneurism - Social History Alcohol Use: None Hx Substance Use: No Substance Use Type: Reports: None Hx Tobacco Use: No Smoking Status (MU): Never Smoked Tobacco Review of Systems Negative: Fever, Chills Negative: Erythema Negative: Sore Throat Positive: Chest Pain - over left breast and right chest underneath rib and radiates to back and jaw Positive: Shortness Of Breath, Cough - chronic Negative: Abdominal Pain, Vomiting, Nausea Negative: dysuria, hematuria Negative: Myalgia, Edema Negative: Rash Neurological: Other - negative dizziness, lightheadedness All Other Systems Reviewed And Are Negative: Yes Physical Exam - Summary Physical Exam Summary: Constitutional: Well-developed, Well-nourished, Alert. (-) Distressed Skin: Warm, Dry HENT: Normocephalic; Atraumatic Eyes: Conjunctiva normal Neck: Musculoskeletal ROM normal neck. (-) JVD, (-) Stridor, (-) Tracheal deviation Cardio: Rhythm regular, rate normal, Heart sounds normal; Intact distal pulses; The pedal pulses are 2+ and symmetric. Radial pulses are 2+ and symmetric. (-) Murmur Pulmonary/Chest wall: Effort normal. (-) Respiratory distress, (-) Wheezes, (-) Rales Abd: Soft, (-) Tenderness, (-) Distension, (-) Guarding, (-) Rebound Musculoskeletal: (-) Edema Lymph: (-) Cervical adenopathy Neuro: Alert, Oriented x3 Psych: Mood and affect Normal Triage Information Reviewed: Yes Vital Signs On Initial Exam: Initial Vitals Temp Pulse Resp BP Pulse Ox 98.3 F 99 18 167/83 98 02/15/18 18:36 02/15/18 18:36 02/15/18 18:36 02/15/18 18:36 02/15/18 18:36 Vital Signs Reviewed: Yes Procedures - Procedure Summary Procedure Summary: US guided peripheral IV placement: compressible non-pulsatile vessel visualized in the right antecubital space. It was catheterized with good blood return and good flush. Secured in place. Diagnostics - Vital Signs Vital Signs Temp Pulse Resp BP Pulse Ox 02/15/18 18:36 98.3 F 99 18 167/83 98 - Laboratory Result Diagrams: 02/15/18 19:20 Lab Statement: Any lab studies that have been ordered have been reviewed, and results considered in the medical decision making process. - Radiology CXR Radiology Interpretation Completed By: Radiologist - No evidence for acute intrathoracic disease. Dr. Nielsen has reviewed this report. - CT CTA Chest CT Interpretation Completed By: Radiologist - CTA Chest, per radiologist, reveals 1. Negative for aneurysm or dissection of the abdominal aorta. 2. Hepatomegaly and hepatosteatosis. 3. Mild colonic diverticulosis without findings of diverticulitis. 4. Negative for obstructive uropathy. Dr. Nielsen has reviewed this radiology report. - EKG 1837 Cardiac Rate: NL - 99 bpm EKG Rhythm: Sinus Rhythm EKG Interpretation: no STEMI Chest Pain Course/Dx - Course Assessment/Plan: This patient is a 62 year old F presenting to [facility] with a chief complaint of intermittent CP over left breast and underneath right rib that radiates to back and jaw since 1630. The patient rates the pain 10/10 in severity. Symptoms aggravated and alleviated by nothing. Patient reports chronic cough and SOB, but denies dizziness and lightheadedness. Pt states she has not taken aspirin today. PMHx HTN. No PSHx stents. An EKG reveals NSR, 99 bpm, no STEMI. CXR, per radiologist, no evidence for acute intrathoracic disease. Dr. Nielsen has reviewed this report. CTA Chest, per radiologist, reveals 1. Negative for aneurysm or dissection of the abdominal aorta. 2. Hepatomegaly and hepatosteatosis. 3. Mild colonic diverticulosis without findings of diverticulitis. 4. Negative for obstructive uropathy. Dr. Nielsen has reviewed this radiology report. In the ED course, pt was given morphine and Zofran. [2058] Dr. Cunha (hospitalist) agrees to admit pt. Performed US guided peripheral IV placement: compressible non-pulsatile vessel visualized in the right antecubital space. It was catheterized with good blood return and good flush. Secured in place. Pt is stable and will be admitted with Dx CP unspecified. Pt understands and agrees with this plan. - Diagnoses Provider Diagnoses: Chest pain, unspecified - Provider Notifications Discussed Care Of Patient With: Cristóbal Cunha - Hospitalist Time Discussed With Above Provider: 20:58 Instructed by Provider To: Admit As Inpatient Discharge - Sign-Out/Discharge Documenting (check all that apply): Discharge - admit - Discharge Plan Condition: Stable Disposition: ADMITTED TO [facility] Referrals: Rajiv Watson MD [Primary Care Provider] - The documentation as recorded by the Jimbo villa Nilda accurately reflects the service I personally performed and the decisions made by Morales landers Jerry, MD.
--- NOTE | 2018-02-17 12:55 | DS ---
CC: Dr. Rajiv Watson; Dr. Ron Kramer * DATE OF ADMISSION: 02/15/2018. DATE OF DISCHARGE: 02/17/2018. ATTENDING PHYSICIAN: Dr. Federico Hay * (dictated by OSWALDO Oreilly). ADMITTING PHYSICIAN: Dr. Cunha. ADMISSION DIAGNOSES: 1. Atypical chest pain. 2. Hypertension. 3. Chronic back pain. 4. Gastroesophageal reflux disease. DISCHARGE DIAGNOSES: 1. Atypical chest pain. 2. Hypertension. 3. Chronic back pain. 4. Gastroesophageal reflux disease. 5. Hyperlipidemia. CONSULTATIONS: Dr. Ron Kramer. PROCEDURES: None. BRIEF MEDICAL HISTORY: Ms. Muller is a 62-year-old female with a past medical history significant for hypertension who presented to the emergency room after she experienced a rapid onset of sharp left-sided chest pain. She notes that the pain seemed to be burning in nature, radiates to the right neck, and down her right arm. She notes some associated shortness of breath, but there was no nausea, vomiting, palpitation, syncope, or any other associated symptoms. She denied any cough, congestion, or exacerbating factors. She had a cardiac work- up in the ED that revealed a normal troponin and an EKG that revealed the possibility of ischemic changes on the lateral wall for which she was admitted for observation and to obtain a serial troponin. HOSPITAL COURSE: The patient was admitted under Hospitalist service on 2017. She was managed in the Telemetry Unit and found to have stable vitals. She was evaluated the next morning and she denied any recurrent chest pain. Her troponin was obtained per protocol and continued to flat out normal. She had a nuclear stress test done that revealed the possibility of ischemic changes with intermediate rest. Consultation with Cardiology was obtained by Dr. Kramer who evaluated the patient and added Metoprolol and Lipitor to her medication regimen. The patient continued to improve and was ambulatory out of bed. The reed dipper did not think there was any risk for coronary artery syndrome and the patient eventually was cleared for discharge on the 2nd day from admission. Today's morning, on her exam, she continued to experience no chest pain. Her auscultation revealed a regular rate and rhythm with no rubs, murmurs or gallops noted. Her lung exam revealed clear auscultation with no rhonchi or rales. She was ambulatory out of bed and tolerated her diet very well. She will be discharged to home this morning and will follow-up with Dr. Kramer in two weeks as an outpatient and also will follow-up with her primary care physician in a couple of weeks. DISCHARGE MEDICATIONS: 1. Norvasc 10 mg p.o. daily. 2. Lipitor 40 mg p.o. daily. 3. Gabapentin 300 mg p.o. t.i.d. 4. Metoprolol Succinate 25 mg p.o. daily. 5. Aleve 220 mg p.o. daily. 6. Protonix 40 mg p.o. b.i.d. 7. Triamterene/Hydrochlorothiazide 37.5/25 one cap p.o. daily. 8. Acetaminophen with Codeine 30 mg tablets p.o. t.i.d. prn for aches and pains. PROBLEM LIST: 1. Angina pectoris with atypical chest pain and no evidence of acute coronary syndrome. 2. Hypertension. 3. Hyperlipidemia. 4. GERD. 5. Chronic back pain. OSWALDO OREILLY [id number]/[facility] #: [id number]
[2018-02-17 16:04] VITALS: BP 137/68
== END 2018-02-17 14:15 | disposition home or self-care (01) ==
LOC: ED 18:36 → MEDTELE 21:24 → INTOOBSV 02-16 16:58 → OBSVTOIN 02-16 16:58
PROVIDERS: ADMIT Hospitalist; ATTEND Internal Medicine
DX: R07.89 Other chest pain (principal); I10 Essential (primary) hypertension; M54.9 Dorsalgia, unspecified; I25.10 Atherosclerotic heart disease of native coronary artery without angina pectoris; G89.29 Other chronic pain; K21.9 Gastro-esophageal reflux disease without esophagitis; E78.5 Hyperlipidemia, unspecified; M47.9 Spondylosis, unspecified; K58.9 Irritable bowel syndrome, unspecified; Z79.82 Long term (current) use of aspirin; E66.9 Obesity, unspecified
CPT/HCPCS: 36415; 71045; 71275; 74174; 78452; 80048; 80053; 80061; 83605; 84484; 85025; 93005; 93017; 94760; 96374; 96375; 99285; A9270-GY; A9502; G0378; J2270; J2405; J2785; Q9967

== ENCOUNTER 2018-05-31 08:39 | Emergency (ER) | payer MEDICARE ==
--- OUTSIDE RECORDS SUMMARY | 2018-05-31 09:15 | XMS REPORT ---
:1955 External Reference #:[id number] Author Organization [employer] Address [address] [address] [place] [address] Phone [phone] Care Team Providers Name Role Phone Rajiv Watson MD Primary Care Physician Unavailable Payers Type Date Identification Numbers Payment Provider Subscriber Commercial Effective: 2017 Policy Number: [id number] [employer] Medicare Charline Muller Group Number: [id number] [address] PayID: [id number] [place] [address] Workers Compensation Effective: Policy Number: National Russ Muller 2006 [id number] Expires: 2017 Group Number: [id number] [address] Onset: 2006 PayID: [id number] [place] [address] Medigap Part B Expires: 2017 Policy Number: [id number] Medicaid Charline Muller PayID: [id number] [address] [place] [address] Problems Date Description Provider Status Onset: 07/15/2017 Closed fracture of distal end of Petey Lujan MD Active radius Onset: 09/28/2017 Rupture of extensor tendons of Petey Lujan MD Active hand AND/OR wrist Onset: 05/05/2018 Angina pectoris Ron Kramer M.D., [facility], Active [facility] Onset: 02/23/2018 Hyperlipidemia Ron Kramer M.D., [facility], Active [facility] Onset: 02/23/2018 Essential hypertension Ron Kramer M.D., [facility], Active [facility] Onset: 02/23/2018 Chest pain Ron Kramer M.D., [facility], Active [facility] Family History Date Family Member(s) Problem(s) Comments General Diabetes General Heart Disease General Hypertension General Stroke General Rheumatoid Arthritis Social History Type Date Description Comments Lives With Occupation Unemployed ETOH Use Denies alcohol use Smoking Patient has never smoked Recreational Drug Use Denies Drug Use Daily Caffeine Consumes on average 1 cup of regular coffee per day Exercise Type/Frequency Does not exercise Allergies, Adverse Reactions, Alerts Date Description Reaction Status Severity Comments 07/15/2017 Vicodin active Medications Medication Date Status Form Strength Qnty SIG Indications Ordering Provider Norvasc Active Tablets 10mg 90tabs 1 by Ron Jacob mouth Stefek, every M.D., day [facility], [facility] Atorvastatin Active Tablets 40mg 30tabs 1 by Ron Page 018 mouth Stefek, every M.D., day [facility], [facility] Aleve Active Capsules 220mg 1-2 by Unknown 000 mouth a day as needed Gabapentin Active Capsules 300mg 1 by Unknown 000 mouth three times a day Protonix Active Tablets DR 40mg 1 by Unknown 000 mouth every day Acetaminophen-C Active Tablets 300-30mg 1 tab by Unknown odeine #3 000 mouth every 4-6 hours as needed for pain Triamterene/Hyd Active Capsules 37.5-25mg 1 by Unknown rochlorothiazid 000 mouth e every day Tizanidine HCL Active 4mg as Unknown 000 needed Nadolol Active 20mg take one Unknown 000 tab by mouth daily Metoprolol Hx Tablets ER 25mg 90tabs 1 by Ron Succinate ER 018 - 24HR mouth Stefek, every M.D., 018 [facility], [facility] Lyrica Hx Unknown 000 - 018 Blood Pressure 0 Hx Unknown Med. 000 - 018 Tramadol HCL ER 0 Hx Unknown 000 - 017 Vital Signs Date Vital Result Comment 05/05/2018 Height 62 inches 5'2" Weight 197.00 lb w/o shoes Heart Rate 68 /min BP Systolic Sitting 150 mmHg Lue lg cuff BP Diastolic Sitting 100 mmHg Lue lg cuff BP Systolic Standing 140 mmHg Lue BP Diastolic Standing 94 mmHg Lue Respiratory Rate 16 /min BMI (Body Mass Index) 36.0 kg/m2 Ejection Fraction 77% as of 02/16/18 stress test 02/23/2018 Height 62 inches 5'2" Weight 192.00 lb w/o shoes Heart Rate 80 /min BP Systolic 132 mmHg lue large cuff BP Diastolic 76 mmHg lue large cuff BP Systolic Sitting 138 mmHg lue large cuff BP Diastolic Sitting 72 mmHg lue large cuff Respiratory Rate 18 /min BMI (Body Mass Index) 35.1 kg/m2 Ejection Fraction 77% w/ sts stress test 02/16/18 11/24/2017 Heart Rate 91 /min BP Systolic Sitting 156 mmHg BP Diastolic Sitting 76 mmHg Body Temperature 98.3 F 10/04/2017 Height 62 inches 5'2" Weight 201.00 lb Heart Rate 92 /min Respiratory Rate 22 /min Body Temperature 97.7 F Pain Level 5 BMI (Body Mass Index) 36.8 kg/m2 09/28/2017 Height 62 inches 5'2" Weight 198.00 lb BP Systolic 118 mmHg BP Diastolic 70 mmHg Respiratory Rate 20 /min Pain Level 2 BMI (Body Mass Index) 36.2 kg/m2 08/17/2017 Height 62 inches 5'2" Weight 198.00 lb BP Systolic 132 mmHg BP Diastolic 80 mmHg Respiratory Rate 20 /min Pain Level 2 BMI (Body Mass Index) 36.2 kg/m2 07/27/2017 Height 62 inches 5'2" Weight 198.00 lb BP Systolic 115 mmHg BP Diastolic 80 mmHg Body Temperature 97.1 F Pain Level 1 BMI (Body Mass Index) 36.2 kg/m2 07/15/2017 Height 62 inches 5'2" Weight 198.00 lb Heart Rate 88 /min BP Systolic 113 mmHg BP Diastolic 65 mmHg Respiratory Rate 16 /min Pain Level 8 BMI (Body Mass Index) 36.2 kg/m2 Results Description No Information Procedures Date CPT Code Description Status 05/05/2018 60629 EKG Tracing & Interpretation Completed 02/23/2018 77225 EKG Tracing & Interpretation Completed 02/16/2018 27886 Treadmill Interp/Report Only Completed 02/16/2018 06132 Stress Test Supervsn W/Out I/R Completed 02/16/2018 84564 EKG, Interpretation Only Completed 07/27/2017 50126 Short Arm Cast Application Completed 07/15/2017 78614 CLST TRMT Distal Radial FX Completed 09/28/2003 97628 ECHO/Stress Completed 09/28/2003 41308 Stress Test Completed Encounters Type Date Location Provider CPT E/M Dx Office Visit 02/23/2018 [facility] Ron Kramer M.D., 08243 R07.9 9:20a [facility] AT [facility], [facility] I10 E78.5 Office Visit 02/17/2018 2:01p [facility] Ron Kramer M.D., 54389 R07.9 [facility] 02/17/2018 11:11a [facility] Devon Spears, 95761 R07.2 [facility] [place] K21.9 I10 Office Visit 02/15/2018 11:08a [facility] [place], [address] R07.2 Assoc,pc Bharat Jose I10 K21.9 Office Visit 11/24/2017 10:15a [facility] Jocelyn Mckeon, 85985 M66.241 Of Lillian Jose S52.591S Office Visit 10/04/2017 10:45a [facility] Jocelyn Mckeon, 77883 S52.591S Of Lillian Jose M66.241 Office Visit 01/18/2007 9:30a [facility] [place], 54619 847.0 Elida Jose Plan of Care 05/05/2018 - Ron Kramer M.D., [facility], [id number] Angina pectoris, unspecifiedComments:Your anginal symptoms appear to be stable. But your blood pressure is elevated and may need more controlFollow up:1 yearRecommendations: Continue current medications and call your family doctor Dr Watson to get your blood pressure checked. We will have you increase the nadolol to 30 mg a day.
[2018-05-31] MEDS ORDERED: Ibuprofen TAB* 600 MG PO ONE (09:19)
--- NOTE | 2018-05-31 10:26 | RAD ---
INDICATION: Pain and swelling. COMPARISON: None TECHNIQUE: Duplex interrogation of the Lowerextremity was performed. FINDINGS: Deep veins: The common femoral, great saphenous, profunda femoris, proximal, mid, and distal deep femoral, popliteal, posterior tibial, and peroneal veins are patent. There is normal compressibility, augmentation, and phasic flow. Superficial veins: There are no findings of superficial thrombophlebitis. Popliteal fossa:There is a popliteal cyst measuring 1.5 x 0.8 x 1.0 cm. Soft tissues:There are no soft tissue abnormalities. IMPRESSION: POPLITEAL CYST. NO EVIDENCE OF DEEP VENOUS THROMBOSIS.
[2018-05-31 10:55] VITALS: BP 155/72
--- NOTE | 2018-05-31 16:44 | ED ---
Lower Extremity - HPI Summary HPI Summary: Patient is a 62-year-old who presents emergency department for evaluation of lower leg edema times several days. Patient also notes pain to her right low back and posterior right leg. Denies any injuries. Patient states she called her family doctor today and was told to present to the ER for evaluation. 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 She states the swelling is better in the morning and worse at night. She denies chest pain or shortness of breath. Symptoms are mild to moderate in severity. - History of Current Complaint Chief Complaint: EDExtremityLower Stated Complaint: FEET SWOLLEN/LEGS HURT Time Seen by Provider: 05/31/18 09:09 Hx Obtained From: Patient Pain Intensity: 6 Pain Scale Used: 0-10 Numeric - Allergies/Home Medications Allergies/Adverse Reactions: Allergies Allergy/AdvReac Type Severity Reaction Status Date / Time hydrocodone Allergy Headache Verified 05/31/18 08:49 PMH/Surg Hx/FS Hx/Imm Hx Previously Healthy: Yes Endocrine/Hematology History: Denies: Hx Anticoagulant Therapy, Hx Blood Disorders, Hx Diabetes Cardiovascular History: Reports: Hx Hypertension - Was instructed by PCP to watch BP. Denies: Hx Aneurysm, Hx Angina, Hx Atrial Fibrillation, Hx Cardiomegaly, Hx Congenital Heart Disease, Hx Congestive Heart Failure, Hx Coronary Artery Disease, Hx Hypercholesterolemia, Hx Myocardial Infarction, Hx Valvular Heart Disease Respiratory History: Reports: Other Respiratory Problems/Disorders - chronic cough tx's w/ tylenol w/ codeine Denies: Hx Asthma, Hx Chronic Obstructive Pulmonary Disease (COPD) GI History: Reports: Hx Diverticulosis, Hx Irritable Bowel Denies: Hx Gastroesophageal Reflux Disease Musculoskeletal History: Denies: Hx Arthritis, Hx Rheumatoid Arthritis, Hx Back Problems, Hx Bursitis , Hx Fibromyalgia, Hx Gout Sensory History: Reports: Hx Contacts or Glasses Denies: Hx Hearing Aid Opthamlomology History: Reports: Hx Contacts or Glasses - Surgical History Surgery Procedure, Year, and Place: colectomy for diverticulitis Infectious Disease History: No Infectious Disease History: Denies: Traveled Outside the [place] in Last 30 Days - Family History Known Family History: Positive: Cardiac Disease - [place] father 57 y/o, Other - no known aneurism - Social History Occupation: Works From/At Home Lives: With Family Alcohol Use: None Hx Substance Use: No Substance Use Type: Reports: None Hx Tobacco Use: No Smoking Status (MU): Never Smoked Tobacco Review of Systems Constitutional: Negative Cardiovascular: Negative Respiratory: Negative Positive: Other - pain and swelling to bilateral legs. Right low back pain Skin: Negative Neurological: Negative All Other Systems Reviewed And Are Negative: Yes Physical Exam Triage Information Reviewed: Yes Vital Signs On Initial Exam: Initial Vitals Temp Pulse Resp BP Pulse Ox 98 F 70 16 154/73 99 05/31/18 08:47 05/31/18 08:47 05/31/18 08:47 05/31/18 08:47 05/31/18 08:47 Vital Signs Reviewed: Yes Appearance: Positive: Well-Appearing - Pt. sitting up in bed in NAD. Skin: Positive: Warm, Dry Head/Face: Positive: Normal Head/Face Inspection Eyes: Positive: Normal Neck: Positive: Supple Respiratory/Lung Sounds: Positive: Clear to Auscultation, Breath Sounds Present. Negative: Rales Cardiovascular: Positive: Normal, RRR Musculoskeletal: Positive: Other - Palpable bilateral pedal pulses. No pitting edema. Pain to the right calf and positive Homans sign. No wounds or erythema to LEs. Mild mid and low back pain on palpation. Neurological: Positive: Normal, CN Intact II-III Psychiatric: Positive: Affect/Mood Appropriate Diagnostics - Vital Signs Vital Signs Temp Pulse Resp BP Pulse Ox 05/31/18 10:54 98.1 F 65 16 155/72 99 05/31/18 08:47 98 F 70 16 154/73 99 - Laboratory Lab Statement: Any lab studies that have been ordered have been reviewed, and results considered in the medical decision making process. Lower Extremity Course/Dx - Course Course Of Treatment: Patient presenting for evaluation of lower leg pain and pain to right calf. She has minimal edema around the ER. She is afebrile with stable vital signs. She does have right calf pain, Will obtain venous duplex to rule out DVT. Ultrasound shows Phillips's cyst without DVT, reading per radiology. Results discussed with patient. Advised her to elevate her legs and avoid sitting for long periods of time. Continue Tylenol or Motrin for pain as directed. Close follow-up with PCP for further evaluation and return to the ER if symptoms change or worsen. Patient understands and agrees with plan. - Diagnoses Differential Diagnosis/HQI/PQRI: Positive: DVT, Infection, Sprain, Strain, Tendonitis Provider Diagnoses: Peripheral edema, Bakers cyst, Back strain Discharge - Sign-Out/Discharge Documenting (check all that apply): Patient Departure - Discharge Plan Condition: Good Disposition: HOME Patient Education Materials: Bakers Cyst (ED), Low Back Strain (ED), Leg Edema (ED) Referrals: Rajiv Watson MD [Primary Care Provider] - Additional Instructions: Schedule a follow up appointment with your PCP Elevate legs and avoid standing for long periods of time Tylenol or Motrin for pain as directed Return to ER if symptoms change or worsen - Billing Disposition and Condition Condition: GOOD Disposition: Home
== END 2018-05-31 10:54 | disposition home or self-care (01) ==
LOC: ED 08:39
DX: R60.9 Edema, unspecified (principal); M71.20 Synovial cyst of popliteal space [Baker], unspecified knee; S39.012A Strain of muscle, fascia and tendon of lower back, initial encounter; X58.XXXA Exposure to other specified factors, initial encounter; Y92.9 Unspecified place or not applicable
CPT/HCPCS: 99281; A9270-GY

== ENCOUNTER 2019-03-27 17:36 | Emergency (ER) | payer MEDICARE ==
--- NOTE | 2019-03-27 17:55 | ED ---
HPI Chest Pain - HPI Summary HPI Summary: The patient is a 63 y/o F presenting to [facility] with a chief complaint of sudden onset left anterior CP starting two hours ago. She states that she was mowing the lawn using a push-mower when she started feeling unwell with dizziness, and then the CP started. She has associated left shoulder pain that started a few days ago, neck pain, nausea, and SOB. The sharp pain is currently rated 5/10 in severity. There are no aggravating or alleviating factors. She has hx of CAD, HTN, GERD, and chronic cough. No previous NM. Her HTN is normally controlled by Amlodipine, but her BP has been higher than usual. Her medication was recently changed due to the higher BP readings. - History of Current Complaint Chief Complaint: EDChestPainROMI Time Seen by Provider: 03/27/19 17:46 Hx Obtained From: Patient Onset/Duration: Started Hours Ago - two, Still Present Timing: Constant, Lasting Hours Initial Severity: Moderate Current Severity: Moderate Pain Intensity: 5 Pain Scale Used: 0-10 Numeric Chest Pain Location: Left Anterior Chest Pain Radiates: Yes Chest Pain Radiates To:: Shoulder - left, Neck Character: Sharp/Stabbing Aggravating Factor(s): Nothing Alleviating Factor(s): Nothing Associated Signs and Symptoms: Positive: Chest Pain - left anterior, Dizziness, Shortness of Breath, Nausea, Other: - neck pain and left shoulder pain - Additional Pertinent History Primary Care Physician: [id number] - Allergy/Home Medications Allergies/Adverse Reactions: Allergies Allergy/AdvReac Type Severity Reaction Status Date / Time hydrocodone Allergy Headache Verified 05/31/18 08:49 Home Medications: Home Medications Nadolol (NF) 30 mg PO DAILY 03/27/19 [History Confirmed 03/27/19] Verapamil HCl [Verapamil ER] 240 mg PO DAILY 03/27/19 [History Confirmed ] tiZANidine TAB* [Zanaflex TAB*] 2 - 4 mg PO BEDTIME PRN 03/27/19 [History Confirmed 03/27/19] PMH/Surg Hx/FS Hx/Imm Hx Endocrine/Hematology History: Denies: Hx Anticoagulant Therapy, Hx Blood Disorders, Hx Diabetes Cardiovascular History: Reports: Hx Hypertension - Was instructed by PCP to watch BP. Denies: Hx Aneurysm, Hx Angina, Hx Atrial Fibrillation, Hx Cardiomegaly, Hx Congenital Heart Disease, Hx Congestive Heart Failure, Hx Coronary Artery Disease, Hx Hypercholesterolemia, Hx Myocardial Infarction, Hx Valvular Heart Disease Respiratory History: Reports: Other Respiratory Problems/Disorders - chronic cough tx's w/ tylenol w/ codeine Denies: Hx Asthma, Hx Chronic Obstructive Pulmonary Disease (COPD) GI History: Reports: Hx Diverticulosis, Hx Irritable Bowel Denies: Hx Gastroesophageal Reflux Disease Musculoskeletal History: Denies: Hx Arthritis, Hx Rheumatoid Arthritis, Hx Back Problems, Hx Bursitis , Hx Fibromyalgia, Hx Gout Sensory History: Reports: Hx Contacts or Glasses Denies: Hx Hearing Aid Opthamlomology History: Reports: Hx Contacts or Glasses - Surgical History Surgery Procedure, Year, and Place: colectomy for diverticulitis Infectious Disease History: No Infectious Disease History: Denies: Traveled Outside the [place] in Last 30 Days - Family History Known Family History: Positive: Cardiac Disease - NM father 57 y/o, Other - no known aneurism - Social History Alcohol Use: None Hx Substance Use: No Substance Use Type: Reports: None Hx Tobacco Use: No Smoking Status (MU): Never Smoked Tobacco Review of Systems Positive: Chest Pain - left anterior Positive: Shortness Of Breath Positive: Nausea Positive: Other - left shoulder pain, left neck pain Neurological: Other - dizziness All Other Systems Reviewed And Are Negative: Yes Physical Exam - Summary Physical Exam Summary: Appearance: The patient is well-nourished in no acute distress and in no acute pain. Skin: The skin is warm and dry and skin color reflects adequate perfusion. HEENT: The head is normocephalic and atraumatic. The pupils are equal and reactive. The conjunctivae are clear and without drainage. Nares are patent and without drainage. Mouth reveals moist mucous membranes and the throat is without erythema and exudate. The external ears are intact. The ear canals are patent and without drainage. The tympanic membranes are intact. Neck: The neck is supple with full range of motion and non-tender. There are no carotid bruits. There is no neck vein distension. Respiratory: Mild tenderness in the anterior chest wall. Lungs are clear to auscultation and breath sounds are symmetrical and equal. Cardiovascular: Heart is regular rate and rhythm. There is a systolic injection murmur but no rub auscultated. There is no peripheral edema and pulses are symmetrical and equal. Abdomen: The abdomen is soft and non-tender. There are normal bowel sounds heard in all four quadrants and there is no organomegaly palpated. Musculoskeletal: There is no back tenderness noted. Extremities are non-tender with full range of motion. There is good capillary refill. There is no peripheral edema or calf tenderness elicited. Neurological: Patient is alert and oriented to person, place and time. The patient has symmetrical motor strength in all four extremities. Cranial nerves are grossly intact. Deep tendon reflexes are symmetrical and equal in all four extremities. Psychiatric: The patient has an appropriate affect and does not exhibit any anxiety or depression. Triage Information Reviewed: Yes Vital Signs On Initial Exam: Initial Vitals Temp Pulse Resp BP Pulse Ox 98.8 F 82 20 227/106 98 03/27/19 17:39 03/27/19 17:39 03/27/19 17:39 03/27/19 17:39 03/27/19 17:39 Vital Signs Reviewed: Yes Diagnostics - Vital Signs Vital Signs Temp Pulse Resp BP Pulse Ox 03/27/19 17:39 98.8 F 82 20 227/106 98 - Laboratory Result Diagrams: 03/27/19 17:55 03/27/19 17:55 Lab Statement: Any lab studies that have been ordered have been reviewed, and results considered in the medical decision making process. - Radiology CXR Radiology Interpretation Completed By: Radiologist Summary of Radiographic Findings: No acute process. ED physician has reviewed this report. - EKG 17:42 Cardiac Rate: Bradycardia - 57 BPM EKG Rhythm: Sinus Bradycardia Summary of EKG Findings: Sinus bradycardia, normal ST, no ectopy, no STEMI Re-Evaluation - Re-Evaluation First Eval Re-Evaluation Time: 21:12 Change: Improved Comment: The patient is feeling better. We discussed discharge home. Chest Pain Course/Dx - Course Course Of Treatment: Ms. Muller presented with a fairly acute onset of left- sided chest pain which occurred at rest about 30 minutes after she stopped mowing the lawn with a push mower. She was nontoxic in appearance with stable vitals and mild tenderness over the left anterior superior chest wall. She was kept on a monitor while EKG, chest x-ray and labs including delayed troponin were obtained. No acute pathology was noted. She was discharged for close follow-up with her PCP - Diagnoses Provider Diagnoses: Chest pain Discharge - Sign-Out/Discharge Documenting (check all that apply): Patient Departure - Patient will be discharged home. Patient Received Moderate/Deep Sedation with Procedure: No - Discharge Plan Condition: Stable Disposition: HOME Patient Education Materials: Chest Pain (DC) Referrals: Rajiv Watson MD [Primary Care Provider] - 1 Week Additional Instructions: Follow up with your primary care provider this week. RETURN TO THE EMERGENCY DEPARTMENT FOR ANY NEW OR WORSENING SYMPTOMS THAT MAY OCCUR. - Billing Disposition and Condition Condition: STABLE Disposition: Home - Attestation Statements Document Initiated by Ángel: Yes Documenting Scribe: Aleja Gutierrez Provider For Whom Ángel is Documenting (Include Credential): Dr. Kentrell Irby MD Scribe Attestation: Aleja Lombardi scribed for Dr. Kentrell Irby MD on 03/28/19 at 1445. Scribe Documentation Reviewed: Yes Provider Attestation: The documentation as recorded by the Aleja villa accurately reflects the service I personally performed and the decisions made by me, Dr. Kentrell Irby MD Status of Scribe Document: Viewed
[2019-03-27 18:23] LABS: ABS Basophils 0.1 10^3/ul (0-0.2); ABS Eosinophils 0.2 10^3/ul (0-0.6); ABS Lymphocytes 3.7 10^3/ul (1.0-4.8); ABS Monocytes 0.7 10^3/ul (0-0.8); ABS Neutrophils 8.3 10^3/ul (1.5-7.7); Eosinophil % 1.7 %; Hematocrit 39 % (35-47); Hemoglobin 12.6 g/dL (12.0-16.0); Lymphocyte % 28.3 %; Mean Corpuscular HGB Conc 33 g/dL (31-36); Mean Corpuscular Hemoglobin 28 pg (27-31); Mean Corpuscular Volume 86 fL (80-97); Mean Platelet Volume 7.8 fL (7.4-10.4); Nucleated Red Blood Cells % 0.1; Platelet Count 291 10^3/uL (150-450); Red Blood Count 4.49 10^6 /uL (3.70-4.87); Red Cell Distribution Width 15 % (10.5-15); White Blood Count 12.9 10^3/uL (3.5-10.8)
[2019-03-27 18:27] LABS: INR 0.96 (0.82-1.09)
[2019-03-27 18:34] LABS: Albumin 4.6 g/dL (3.2-5.2); Albumin/Globulin Ratio 1.2 (1-3); BUN/Creatinine Ratio 22.2 (8-20); Calcium 9.8 mg/dL (8.6-10.3); EGFR African American 86.4 (>60); EGFR Non-African American 71.4 (>60); Globulin 3.7 g/dL (2-4); Potassium 3.6 mmol/L (3.5-5.0); Total Bilirubin 0.3 mg/dL (0.2-1.0); Total Protein 8.3 g/dL (6.4-8.9)
[2019-03-27 18:36] LABS: Troponin I 0.01 ng/mL (<0.04)
[2019-03-27] MEDS ORDERED: Ondansetron INJ* 2 MG/ML VIAL IV ONE (19:51)
[2019-03-27 21:37] VITALS: BP 165/79
== END 2019-03-27 21:37 | disposition home or self-care (01) ==
LOC: ED 17:36
DX: R07.9 Chest pain, unspecified (principal); I10 Essential (primary) hypertension; K58.9 Irritable bowel syndrome, unspecified; R00.1 Bradycardia, unspecified
CPT/HCPCS: 36415; 71045; 80053; 84484; 85025; 85379; 85610; 93005; 99283; J2405

== ENCOUNTER 2020-05-08 06:56 | Observation (INO) ==
[~2020-05-08 06:56] MED LIST: Dexamethasone IV 4 MG/ML VIAL 1 ml VIAL IV SLOW PU ONE; Famotidine IV 10 MG/ML 2 ml VIAL (20 mg) IV ONE; Lactated Ringers 1000 ml BAG 1,000 ML IV SCH
[2020-05-08] MEDS ORDERED: Dexamethasone IV 4 MG/ML VIAL 1 ml VIAL ONE (07:47)
[2020-05-08] MEDS ORDERED: Famotidine IV 10 MG/ML 2 ml VIAL (20 mg) ONE (07:47)
[2020-05-08] MEDS: Buffered Lidocaine 1% SYRIN 1 ml INTRADERM ONE (08:02)
[2020-05-08] MEDS ORDERED: fentaNYL 100 mcg/2 ml 50 MCG/ML VIAL ONE (08:08)
[2020-05-08] MEDS ORDERED: Midazolam 2 mg/2 ml VIAL 1 mg/ml 2 ml VIAL (2 mg) ONE (08:08)
[2020-05-08] MEDS ORDERED: Metoclopramide 5 MG/ML VIAL (10 mg) ONE (08:09)
[2020-05-08] MEDS ORDERED: EPHEDrine (Pressors) 50 MG/ML VIAL ONE (08:09)
[2020-05-08] MEDS ORDERED: Ondansetron 4 mg VIAL 2 MG/ML 2 ml VIAL ONE (08:09)
[2020-05-08] MEDS ORDERED: Lidocaine 2% PF 5 ML VIAL ONE (08:09)
[2020-05-08] MEDS ORDERED: Propofol 10 MG/ML 20 ML BTL ONE (08:09)
[2020-05-08] MEDS ORDERED: Lidocaine 2% JELLY 6 ML TOPICAL ONE (08:44)
[2020-05-08] MEDS ORDERED: Lidocaine 1% w EPI 1:100,000 MDV 20 ML VIAL ONE (09:03)
[2020-05-08] MEDS ORDERED: Phenylephrine 40 mcg/mL 10mL (400mcg) SYRINGE ONE (09:05)
[2020-05-08] MEDS ORDERED: HYDROmorphone 1 MG/1 ML SYRINGE IV PRN (09:47)
[2020-05-08] MEDS ORDERED: Acetaminophen IV 1 GM/100ML 1,000 MG/100 ML VIAL IVPB ONE (09:47)
[2020-05-08] MEDS ORDERED: DiMENhydriNATE IV 50 mg/ml 1 ml VIAL IV PUSH PRN (09:47)
[2020-05-08] MEDS ORDERED: fentaNYL 100 mcg/2 ml 50 MCG/ML VIAL IV PRN (09:47)
[2020-05-08] MEDS ORDERED: Naloxone 0.4 mg VIAL 0.4 mg/ml 1 ml VIAL IV PRN (09:47)
[2020-05-08] MEDS ORDERED: Ondansetron 4 mg VIAL 2 MG/ML 2 ml VIAL IV PRN (09:47)
[2020-05-08] MEDS ORDERED: Perflutren Lipid Microsphere 3 ML VIAL ONE (11:22)
[2020-05-08] MEDS ORDERED: Metoprolol Tartrate 5 mg VIAL 5 ml VIAL (1 mg/ml) ONE (11:50)
[2020-05-08 11:53] LABS: ABS Eosinophils 0.1 10^3/ul (0-0.6); ABS Lymphocytes 2.2 10^3/ul (1.0-4.8); ABS Monocytes 0.3 10^3/ul (0-0.8); Eosinophil % 0.8 %; Hematocrit 35 % (35-47); Hemoglobin 11.8 g/dL (12.0-16.0); Lymphocyte % 19.4 %; Mean Corpuscular HGB Conc 33 g/dL (31-36); Mean Corpuscular Hemoglobin 28 pg (27-31); Mean Corpuscular Volume 83 fL (80-97); Mean Platelet Volume 7.3 fL (7.4-10.4); Platelet Count 230 10^3/uL (150-450); Red Blood Count 4.26 10^6 /uL (3.70-4.87); Red Cell Distribution Width 15 % (10-15); White Blood Count 11.6 10^3/uL (3.5-10.8)
[2020-05-08] MEDS ORDERED: Metoprolol Tartrate 5 mg VIAL 5 ml VIAL (1 mg/ml) IV ONE (12:01)
[2020-05-08 12:21] LABS: Albumin 3.9 g/dL (3.2-5.2); Anion Gap 11 mmol/L (2-11); CO2 Carbon Dioxide 23 mmol/L (22-32); Calcium 8.9 mg/dL (8.6-10.3); Chloride 106 mmol/L (101-111); Magnesium 1.6 mg/dL (1.9-2.7); Potassium 4.2 mmol/L (3.5-5.0); Sodium 140 mmol/L (135-145)
[2020-05-08 12:26] LABS: CKMB ng/mL 1.6 ng/mL (0.6-6.3)
[2020-05-08] MEDS ORDERED: Magnesium Sulfate 2 gm BAG 2 GM/50 ML BAG IVPB ONE (12:26)
[2020-05-08 12:27] LABS: ALT 15 U/L (7-52); AST 17 U/L (13-39); Albumin/Globulin Ratio 1.1 (1-3); Alkaline Phosphatase 70 U/L (34-104); BUN/Creatinine Ratio 20.5 (8-20); Blood Urea Nitrogen 15 mg/dL (6-24); EGFR African American 97.1 (>60); EGFR Non-African American 80.3 (>60); Globulin 3.5 g/dL (2-4); Glucose 149 mg/dL (70-100); Total Protein 7.4 g/dL (6.4-8.9)
[2020-05-08] MEDS: Acetaminop/Codeine 300mg/30mg TAB PO PRN ×2 (14:33→19:05)
[2020-05-08 14:41] LABS: Ferritin 102.1 ng/mL (11-307)
[2020-05-08 14:42] LABS: % Iron Saturation 17 % (15-55); Iron 51 ug/dL (50-212); Total Iron Binding Capacity 294 mcg/dL (250-450); Transferrin 210 mg/dL (203-362)
[2020-05-08] MEDS: Mometasone/Formoter 100/5 MDI INH SCH ×2 (16:35→19:46)
[2020-05-08] MEDS ORDERED: Enoxaparin 40 MG/0.4 ML SYR(*) SUBCUT SCH (21:00)
[2020-05-09 05:39] LABS: BUN/Creatinine Ratio 19.7 (8-20); Calcium 8.8 mg/dL (8.6-10.3); EGFR African American 109.1 (>60); EGFR Non-African American 90.2 (>60); Magnesium 2.1 mg/dL (1.9-2.7); Potassium 4.3 mmol/L (3.5-5.0)
[2020-05-09] MEDS: Acetaminop/Codeine 300mg/30mg TAB PO PRN (08:00)
[2020-05-09] MEDS: Mometasone/Formoter 100/5 MDI INH SCH (08:28)
[2020-05-09 11:37] VITALS: BP 111/55
== END 2020-05-09 12:35 | disposition home or self-care (01) ==
LOC: MEDTELE 06:56 → OR 06:56
PROVIDERS: ADMIT Internal Medicine; ATTEND Hospitalist